=== PATIENT | male | born 1990 | race Two or more races ===

== ENCOUNTER 2024-12-24 22:32 | Emergency (ER) | payer SELFPAY ==
[2024-12-24] MEDS: Amoxicillin/Clavulanate K 875-125 MG Tab PO ONE (23:15)
== END 2024-12-24 23:19 | disposition home or self-care (01) ==
LOC: MW.ED 22:32
DX: K04.7 Periapical abscess without sinus (principal)
CPT/HCPCS: 99282; A9270